=== PATIENT | male | born 1990 | race Caucasian/White ===

== ENCOUNTER 2017-10-11 05:17 | Inpatient (IN) | payer OTHER ==
[2017-10-11] VITALS (10 sets, daily range): BP systolic 107–124; BP diastolic 52–70
[~2017-10-11] VITALS: Ht 188 cm; Wt 88.0 kg
[2017-10-11 05:46] LABS: BASOPHIL (%) 0.4 % (0-1); BASOPHIL COUNT 0.1 K/uL (0-0.1); EOSINOPHIL (%) 0.1 % (0-5); HEMATOCRIT 48.1 % (38.0-50.0); HEMOGLOBIN 16.9 G/DL (12.5-16.6); IMMATURE GRANULOCYTE (%) 0.8 % (0.0-0.7); LYMPHOCYTE COUNT 1.6 K/uL (1.0-2.8); MCH 32.8 PG (29.0-34.0); MCHC 35.1 G/DL (30.0-36.0); MCV 93.4 FL (86-99); MONOCYTE (%) 2.5 % (3-12); MONOCYTE COUNT 0.5 K/uL (0-0.8); NEUTROPHIL (%) 88.2 % (45-76); NEUTROPHIL COUNT 17.3 K/uL (1.8-6.4); PLATELET COUNT 258 K/uL (156-360); RBC DIS.WIDTH-CV 12.3 % (11.8-14.6); RBC DIS.WIDTH-SD 42.8 % (39-53); RED BLOOD COUNT 5.15 M/uL (4.00-5.50); WHITE BLOOD COUNT 19.6 K/uL (4.1-10.2)
[2017-10-11 05:57] LABS: CHLORIDE 102 mEq/L (99-109)
[2017-10-11 05:58] LABS: MAGNESIUM 1.7 mg/dL (1.3-2.7); POTASSIUM 3.3 mEq/L (3.7-5.4); SODIUM 140 mEq/L (136-147)
[2017-10-11 06:00] LABS: GLUCOSE 180 mg/dL (70-99); TOTAL PROTEIN 6.9 g/dL (6.4-8.3)
[2017-10-11 06:01] LABS: BASE EXCESS -3.2 mEq/L (-3 to +3); BICARBONATE 25.4 mEq/L (22-26); CARBOXY HGB 1.9 % (0-5); METHEMOGLOBIN 0.9 % (0-1.5); PCO2 58 mm Hg (35-45); PO2 66 mm Hg (80-100)
[2017-10-11 06:02] LABS: COMMENTS - BLOOD GASES C+; DEVICE NRB MASK; FI02 100 %; O2 FLOW 15 L/MIN; SITE RR; TOTAL RESP RATE 16 resp/min; pH 7.25 (7.35-7.45)
[2017-10-11 06:02] LABS: TOTAL BILIRUBIN 0.3 mg/dL (0.0-1.0)
[2017-10-11 06:03] LABS: SERUM ETHYL ALCOHOL < 10 mg/dL
[2017-10-11 06:04] LABS: ALKALINE PHOSPHATASE 94 IU/L (3-129); CREATININE 1.2 mg/dL (0.6-1.3); GFR ESTIMATE (CALCULATED) > 59 mL/min/ (58.99-99999); PHOSPHORUS 5.3 mg/dL (2.5-4.9)
[2017-10-11 06:05] LABS: AST (GOT) 51 IU/L (2-34); UREA NITROGEN (BUN) 21 mg/dL (9-23)
[2017-10-11 06:07] LABS: ALT (GPT) 36 IU/L (3-49); LIPASE 19 U/L (1.0-51.0)
[2017-10-11 06:08] LABS: CREATINE KINASE 225 IU/L (1-294); TOTAL CK 225 IU/L (1-294)
[2017-10-11 06:13] LABS: TROP-I INTERPRETATION NEGATIVE; TROPONIN-I 0.01 ng/mL (0.0-0.30)
[2017-10-11 06:14] LABS: CK-MB 1.8 ng/mL (0.0-4.9); CKMB RELATIVE INDEX 0.8 (0.0-3.9)
[2017-10-11 08:05] LABS: APPEARANCE CLEAR ((CLEAR)); BILIRUBIN NEGATIVE; BLOOD NEGATIVE; COLOR YELLOW ((YELLOW)); GLUCOSE (STRIP) 50; KETONES NEGATIVE; LEUKOCYTES NEGATIVE; NITRITE NEGATIVE; PROTEIN (STRIP) NEGATIVE; SPECIFIC GRAVITY 1.018 (1.000-1.030); UCUL ADDED? NO; UROBILINOGEN 0.2 MG/DL (0.2-1.0)
[2017-10-11 08:15] LABS: COCAINE PRESUMPTIVE POSITIVE (150 ng/mL); METHAMPHETAMINE NEGATIVE (500 ng/mL); OPIATES (MORPHINE) NEGATIVE (100 ng/mL); PHENCYCLIDINE NEGATIVE (25 ng/mL); THC CANNABINOIDS NEGATIVE (50 ng/mL)
[2017-10-11 08:16] LABS: AMPHETAMINE NEGATIVE (500 ng/mL); BARBITURATES NEGATIVE (200 ng/mL); BENZODIAZEPINES PRESUMPTIVE POSITIVE (150 ng/mL); BUPRENORPHINE NEGATIVE (10 ng/mL); METHADONE NEGATIVE (200 ng/mL); OXYCODONE NEGATIVE (100 ng/mL); PROPOXYPHENE NEGATIVE (300 ng/mL); TRICYCLIC ANTIDEPRESSANTS NEGATIVE (300 ng/mL)
[2017-10-11 08:28] LABS: BASE EXCESS -3.3 mEq/L (-3 to +3); BICARBONATE 23.2 mEq/L (22-26); COMMENTS - BLOOD GASES A+C+; DEVICE 980; FI02 100 %; MECHANICAL RATE 24 resp/min; METHEMOGLOBIN 1.2 % (0-1.5); MODE AC; PCO2 46 mm Hg (35-45); PEEP 10 CM/H20; PO2 72 mm Hg (80-100); SITE LR; TIDAL VOLUME 50 ML; TOTAL RESP RATE 24 resp/min; pH 7.31 (7.35-7.45)
[2017-10-11 08:58] LABS: BENZODIAZEPINES, URINE SCREEN POSITIVE (200 ng/mL)
[2017-10-12] VITALS (27 sets, daily range): BP systolic 79–139; BP diastolic 38–105
[2017-10-12 05:59] LABS: BASE EXCESS 2.8 mEq/L (-3 to +3); BICARBONATE 25.7 mEq/L (22-26); CARBOXY HGB 1.7 % (0-5); METHEMOGLOBIN 1.8 % (0-1.5)
[2017-10-12 06:00] LABS: HEMATOCRIT 34.4 % (38.0-50.0); MCH 32.1 PG (29.0-34.0); MCHC 34.3 G/DL (30.0-36.0); MCV 93.5 FL (86-99); RBC DIS.WIDTH-CV 12.7 % (11.8-14.6); RBC DIS.WIDTH-SD 43.8 % (39-53); WHITE BLOOD COUNT 13.2 K/uL (4.1-10.2)
[2017-10-12 06:00] LABS: COMMENTS - BLOOD GASES C; DEVICE VENT; FI02 90 %; MECHANICAL RATE 24 resp/min; MODE AC; PCO2 33 mm Hg (35-45); PEEP 12 CM/H20; PO2 252 mm Hg (80-100); SITE LR; TIDAL VOLUME 500 ML; TOTAL RESP RATE 24 resp/min
[2017-10-12 06:01] LABS: HEMOGLOBIN 11.8 G/DL (12.5-16.6); PLATELET COUNT 159 K/uL (156-360); RED BLOOD COUNT 3.68 M/uL (4.00-5.50)
[2017-10-12 06:09] LABS: CHLORIDE 105 MEQ/L (99-109); CREATININE 1.4 MG/DL (0.6-1.3); GFR ESTIMATE (CALCULATED) > 59 mL/min/ (58.99-99999); POTASSIUM 3.6 MEQ/L (3.7-5.4); SODIUM 139 MEQ/L (136-147); UREA NITROGEN (BUN) 20 mg/dL (9-23)
[2017-10-12 06:10] LABS: GLUCOSE 104 mg/dL (70-99)
[2017-10-13] VITALS (23 sets, daily range): BP systolic 89–130; BP diastolic 43–73
[2017-10-13 00:03] LABS: INTER. NORMALIZED RATIO 1.2
[2017-10-13 00:05] LABS: PTT 28.7 SEC (25-37)
[2017-10-13 01:49] LABS: BASOPHIL (%) 0.3 % (0-1); EOSINOPHIL (%) 0.7 % (0-5); EOSINOPHIL COUNT 0.1 K/uL (0-0.3); HEMATOCRIT 32.1 % (38.0-50.0); IMMATURE GRANULOCYTE (%) 0.6 % (0.0-0.7); LYMPHOCYTE (%) 7.2 % (15-42); LYMPHOCYTE COUNT 0.8 K/uL (1.0-2.8); MCH 32.4 PG (29.0-34.0); MCHC 34.3 G/DL (30.0-36.0); MCV 94.7 FL (86-99); MONOCYTE (%) 5.9 % (3-12); MONOCYTE COUNT 0.7 K/uL (0-0.8); NEUTROPHIL (%) 85.3 % (45-76); NEUTROPHIL COUNT 9.8 K/uL (1.8-6.4); PLATELET COUNT 145 K/uL (156-360); RBC DIS.WIDTH-CV 12.5 % (11.8-14.6); RBC DIS.WIDTH-SD 43.7 % (39-53); RED BLOOD COUNT 3.39 M/uL (4.00-5.50); WHITE BLOOD COUNT 11.5 K/uL (4.1-10.2)
[2017-10-13 02:04] LABS: CHLORIDE 108 mEq/L (99-109); POTASSIUM 3.4 mEq/L (3.7-5.4); SODIUM 139 mEq/L (136-147)
[2017-10-13 02:05] LABS: MAGNESIUM 1.5 mg/dL (1.3-2.7)
[2017-10-13 02:06] LABS: GLUCOSE 124 mg/dL (70-99)
[2017-10-13 02:10] LABS: CREATININE 1.3 mg/dL (0.6-1.3); GFR ESTIMATE (CALCULATED) > 59 mL/min/ (58.99-99999)
[2017-10-13 02:11] LABS: UREA NITROGEN (BUN) 18 mg/dL (9-23)
[2017-10-13 02:16] LABS: PHOSPHORUS 2.5 mg/dL (2.5-4.9)
[2017-10-14] VITALS (24 sets, daily range): BP systolic 97–164; BP diastolic 49–546
[2017-10-14 02:49] LABS: BASOPHIL (%) 0.1 % (0-1); EOSINOPHIL (%) 1.6 % (0-5); EOSINOPHIL COUNT 0.1 K/uL (0-0.3); HEMATOCRIT 30.5 % (38.0-50.0); HEMOGLOBIN 10.6 G/DL (12.5-16.6); IMMATURE GRANULOCYTE (%) 0.6 % (0.0-0.7); LYMPHOCYTE (%) 9.6 % (15-42); LYMPHOCYTE COUNT 0.8 K/uL (1.0-2.8); MCH 32.7 PG (29.0-34.0); MCHC 34.8 G/DL (30.0-36.0); MCV 94.1 FL (86-99); MONOCYTE (%) 6.2 % (3-12); MONOCYTE COUNT 0.5 K/uL (0-0.8); NEUTROPHIL (%) 81.9 % (45-76); NEUTROPHIL COUNT 6.5 K/uL (1.8-6.4); PLATELET COUNT 163 K/uL (156-360); RBC DIS.WIDTH-CV 12.2 % (11.8-14.6); RBC DIS.WIDTH-SD 42.5 % (39-53); RED BLOOD COUNT 3.24 M/uL (4.00-5.50); WHITE BLOOD COUNT 7.9 K/uL (4.1-10.2)
[2017-10-14 03:35] LABS: CHLORIDE 113 mEq/L (99-109); POTASSIUM 3.9 mEq/L (3.7-5.4); SODIUM 143 mEq/L (136-147)
[2017-10-14 03:37] LABS: GLUCOSE 135 mg/dL (70-99)
[2017-10-14 03:41] LABS: GFR ESTIMATE (CALCULATED) > 59 mL/min/ (58.99-99999)
[2017-10-14 03:42] LABS: UREA NITROGEN (BUN) 12 mg/dL (9-23)
[2017-10-14 03:43] LABS: CREATININE 0.8 mg/dL (0.6-1.3)
[2017-10-14 05:33] LABS: BASE EXCESS 0.1 mEq/L (-3 to +3); BICARBONATE 23.3 mEq/L (22-26); CARBOXY HGB 1.5 % (0-5); COMMENTS - BLOOD GASES C+; DEVICE VENT; FI02 45 %; MECHANICAL RATE 22 resp/min; METHEMOGLOBIN 1.3 % (0-1.5); MODE A/CVC+; PCO2 32 mm Hg (35-45); PEEP 5 CM/H20; PO2 124 mm Hg (80-100); SITE RR; TIDAL VOLUME 500 ML; TOTAL RESP RATE 22 resp/min; pH 7.47 (7.35-7.45)
[2017-10-14 09:05] LABS: MAGNESIUM 2.4 mg/dL (1.3-2.7); PHOSPHORUS 3.2 mg/dL (2.5-4.9)
[2017-10-15] VITALS (23 sets, daily range): BP systolic 110–160; BP diastolic 49–95
[2017-10-15 10:06] LABS: BASOPHIL (%) 0.5 % (0-1); EOSINOPHIL (%) 2.3 % (0-5); EOSINOPHIL COUNT 0.2 K/uL (0-0.3); HEMATOCRIT 35.3 % (38.0-50.0); HEMOGLOBIN 11.9 G/DL (12.5-16.6); IMMATURE GRANULOCYTE (%) 1.2 % (0.0-0.7); LYMPHOCYTE (%) 10.7 % (15-42); LYMPHOCYTE COUNT 0.8 K/uL (1.0-2.8); MCHC 33.7 G/DL (30.0-36.0); MCV 94.9 FL (86-99); MONOCYTE (%) 8.2 % (3-12); MONOCYTE COUNT 0.6 K/uL (0-0.8); NEUTROPHIL (%) 77.1 % (45-76); NEUTROPHIL COUNT 5.8 K/uL (1.8-6.4); RBC DIS.WIDTH-CV 12.1 % (11.8-14.6); RBC DIS.WIDTH-SD 42.2 % (39-53); RED BLOOD COUNT 3.72 M/uL (4.00-5.50); WHITE BLOOD COUNT 7.6 K/uL (4.1-10.2)
[2017-10-15 10:10] LABS: PLATELET COUNT 218 K/uL (156-360)
[2017-10-15 10:51] LABS: ALBUMIN 2.9 G/DL (3.2-4.8); ALKALINE PHOSPHATASE 45 IU/L (3-129); ALT (GPT) 18 IU/L (3-49); AST (GOT) 20 IU/L (2-34); CHLORIDE 111 MEQ/L (99-109); CREATININE 0.8 MG/DL (0.6-1.3); GFR ESTIMATE (CALCULATED) > 59 mL/min/ (58.99-99999); GLUCOSE 105 mg/dL (70-99); MAGNESIUM 1.8 mg/dl (1.3-2.7); PHOSPHORUS 3.9 mg/dL (2.5-4.9); POTASSIUM 4.2 MEQ/L (3.7-5.4); SODIUM 143 MEQ/L (136-147); TOTAL BILIRUBIN 0.6 MG/DL (0.0-1.0); TOTAL PROTEIN 5.6 G/DL (6.4-8.3); TRIGLYCERIDES 139 MG/DL (Normal: <150); UREA NITROGEN (BUN) 9 mg/dL (9-23)
[2017-10-16] VITALS (20 sets, daily range): BP systolic 100–147; BP diastolic 54–89
[2017-10-16 07:47] LABS: BASOPHIL (%) 0.9 % (0-1); BASOPHIL COUNT 0.1 K/uL (0-0.1); EOSINOPHIL (%) 2.4 % (0-5); EOSINOPHIL COUNT 0.2 K/uL (0-0.3); HEMATOCRIT 35.8 % (38.0-50.0); HEMOGLOBIN 12.1 G/DL (12.5-16.6); IMMATURE GRANULOCYTE (%) 1.7 % (0.0-0.7); LYMPHOCYTE (%) 12.8 % (15-42); LYMPHOCYTE COUNT 0.9 K/uL (1.0-2.8); MCH 31.3 PG (29.0-34.0); MCHC 33.8 G/DL (30.0-36.0); MCV 92.7 FL (86-99); MONOCYTE (%) 10.4 % (3-12); MONOCYTE COUNT 0.7 K/uL (0-0.8); NEUTROPHIL (%) 71.8 % (45-76); PLATELET COUNT 264 K/uL (156-360); RBC DIS.WIDTH-CV 11.9 % (11.8-14.6); RBC DIS.WIDTH-SD 40.2 % (39-53); RED BLOOD COUNT 3.86 M/uL (4.00-5.50)
[2017-10-17] VITALS (20 sets, daily range): BP systolic 102–148; BP diastolic 46–91
[2017-10-17 05:45] LABS: BASOPHIL (%) 0.8 % (0-1); BASOPHIL COUNT 0.1 K/uL (0-0.1); EOSINOPHIL (%) 2.7 % (0-5); EOSINOPHIL COUNT 0.2 K/uL (0-0.3); HEMOGLOBIN 11.7 G/DL (12.5-16.6); IMMATURE GRANULOCYTE (%) 2.2 % (0.0-0.7); LYMPHOCYTE (%) 13.3 % (15-42); LYMPHOCYTE COUNT 1.1 K/uL (1.0-2.8); MCH 31.6 PG (29.0-34.0); MCHC 34.4 G/DL (30.0-36.0); MCV 91.9 FL (86-99); MONOCYTE (%) 9.5 % (3-12); MONOCYTE COUNT 0.8 K/uL (0-0.8); NEUTROPHIL (%) 71.5 % (45-76); PLATELET COUNT 305 K/uL (156-360); RBC DIS.WIDTH-CV 11.9 % (11.8-14.6); RBC DIS.WIDTH-SD 40.1 % (39-53); WHITE BLOOD COUNT 8.5 K/uL (4.1-10.2)
[2017-10-17 06:08] LABS: CHLORIDE 110 MEQ/L (99-109); CREATININE 0.8 MG/DL (0.6-1.3); GFR ESTIMATE (CALCULATED) > 59 mL/min/ (58.99-99999); GLUCOSE 102 mg/dL (70-99); MAGNESIUM 1.9 mg/dl (1.3-2.7); PHOSPHORUS 4.6 mg/dL (2.5-4.9); POTASSIUM 4.1 MEQ/L (3.7-5.4); SODIUM 142 MEQ/L (136-147); UREA NITROGEN (BUN) 12 mg/dL (9-23)
[2017-10-18] VITALS (22 sets, daily range): BP systolic 99–151; BP diastolic 50–788
[2017-10-19] VITALS (17 sets, daily range): BP systolic 108–228; BP diastolic 58–85
[2017-10-20] VITALS (8 sets, daily range): BP systolic 102–139; BP diastolic 58–86
[2017-10-21 08:08] VITALS: BP 108/57
[2017-10-21 15:21] VITALS: BP 116/70
[2017-10-21 23:21] VITALS: BP 104/53
[2017-10-22 08:23] VITALS: BP 110/51
[2017-10-22] MEDS ORDERED: NICOTINE PATCH1 EAC2 TD (08:45)
[2017-10-22] MEDS ORDERED: THIAMINE HCL100 MG PO (08:45)
[2017-10-22] MEDS ORDERED: DIAZEPAM2 MG PO (08:45)
[2017-10-22] MEDS ORDERED: MULTIPLE VITAM1 EAC1 PO (08:45)
[2017-10-22] MEDS ORDERED: FOLIC ACID1 MG PO (08:45)
[2017-10-22] MEDS ORDERED: FLUOXETINE HCL20 MG PO (08:45)
== END 2017-10-22 10:18 | disposition home or self-care (01) | DRG 917 ==
LOC: EME 05:17 → EDBD 05:17 → 4WEST 11:01 → EDOF 11:01 → ENRESERV 11:01 → 4WEST 13:18 → ENRESERV 10-19 17:57 → 3EAST 10-19 20:36
PROVIDERS: Emergency Medicine; Internal Medicine Critical Care Medicine; Specialist; Surgery
DX: T40.1X2A Poisoning by heroin, intentional self-harm, initial encounter (principal); A41.9 Sepsis, unspecified organism; J69.0 Pneumonitis due to inhalation of food and vomit; J96.01 Acute respiratory failure with hypoxia; I46.9 Cardiac arrest, cause unspecified; E87.4 Mixed disorder of acid-base balance; R04.2 Hemoptysis; F11.20 Opioid dependence, uncomplicated; Z78.1 Physical restraint status; E87.6 Hypokalemia; F10.20 Alcohol dependence, uncomplicated; F32.9 Major depressive disorder, single episode, unspecified; F41.9 Anxiety disorder, unspecified; F63.81 Intermittent explosive disorder
CPT/HCPCS: 36600; 70450; 71045; 71046; 71275; 76937; 80048; 80053; 80202; 81003; 82550; 82553; 82803; 83605; 83690; 83735; 84100; 84478; 84484; 84999; 85025; 85027; 85610; 85730; 87040; 87070; 87205; 87641; 93005; 94002; 94003; 94760; 94799; 99281; 99285; C1751; C1753; G0480; J1200; J1630; J1650; J2060; J2250; J2310; J2543; J2704; J3010; J3370; J3475; J3486; J7030; J7050; S0028